=== PATIENT | male | born 1995 | race African-American/Black ===

== ENCOUNTER 2020-03-31 14:34 | Emergency (ER) | payer SELFPAY ==
--- NOTE | 2020-03-31 15:59 | CT ---
CT OF THE CERVICAL SPINE 03/31/[address] was done for evaluation following trauma. There is loss of the normal cervical lordosis whi ch may be due to muscle spasm. No fracture, dislocation, or disc space narrowing was seen at any cerv ical level. The C1 to 2 distance is normal and the soft tissues of the neck are normal in thickness a nd appearance. There is some mild right foraminal narrowing at the C3-C4 level. All other levels were unremarkable. IMPRESSION: Straightening of the cervical spine. Findings called to Dr. Martin at 1511 on 03/31/20. POS: HOME
--- NOTE | 2020-03-31 16:01 | CT ---
CT OF THE BRAIN WITHOUT CONTRAST: 03/31/[address] shows normal sized ventricles with no shift. No intracranial bleeding, mass or sign of stroke was found. There is no extra-axial hematoma. No skull fractures were evident. The mastoid air cells are clear. IMPRESSION: No acute intracranial finding. POS: HOME
== END 2020-03-31 15:35 | disposition home or self-care (01) ==
LOC: BURERS 14:34
DX: S01.81XA Laceration without foreign body of other part of head, initial encounter (principal); V49.9XXA Car occupant (driver) (passenger) injured in unspecified traffic accident, initial encounter
CPT/HCPCS: 70450; 72125; G0390